=== PATIENT | female | born 2000 | race Caucasian/White ===

== ENCOUNTER 2020-09-17 16:50 | Emergency (ER) | payer SELFPAY ==
[2020-09-17 18:15] VITALS: BP 128/77; PULSE 87; RESP 16; TEMP 36.9; O2SAT 100; BMI 33.1
--- NOTE | 2020-09-17 18:22 | ED.ALLEREA ---
HPI - Allergic Reaction General Chief complaint: Allergic Reaction Stated complaint: itchy skin Time Seen by Provider: 09/17/20 18:20 History of Present Illness HPI narrative: Patient complains of itchy red rash x1 day with no shortness of breath no throat swelling, unsure of what could have caused it and no other complaint Related Data Previous Rx's Medication Instructions Recorded cetirizine 10 mg PO DAILY PRN #14 tab 09/17/20 diphenhydramine HCl [Benadryl] 50 mg PO BEDTIME PRN #14 cap 09/17/20 famotidine [Pepcid] 20 mg PO BID PRN #14 tab 09/17/20 prednisone 60 mg PO DAILY 3 Days #9 tab 09/17/20 Allergies Allergy/AdvReac Type Severity Reaction Status Date / Time No Known Allergies Allergy Verified 09/17/20 18:21 Review of Systems Review of Systems: Review of systems is positive for skin rash There is no dizziness no fever no chills no numbness no weakness no chest pain no shortness of breath no fainting no throat swelling no difficulty swallowing Yes all other systems are reviewed and are negative PMFSH Past Medical History Source: nursing notes reviewed Medical History (Updated 09/17/20 @ 18:25 by HANK Larios) No known health problems Social History Social History Smoked in Last 30 Days: No Use of substances other than those prescribed or required for medical reasons: No Advance Directives: No Advance Directives Information Provided: Yes Physical Exam Vital Signs: Vital Signs: Last Vital Signs Temp 98.5 F 09/17/20 18:15 Pulse 87 09/17/20 18:15 Resp 16 09/17/20 18:15 BP 128/77 09/17/20 18:15 Pulse Ox 100 09/17/20 18:15 Body Mass Index 33.1 General appearance is comfortable relax no acute distress with obvious ordered cardial rash on arms and exposed skin The pharynx is clear with no swelling no drooling the voice is normal The chest is clear to auscultation bilaterally with full symmetrical equal breath sounds, no adventitious sounds The heart no murmurs The skin is diffuse ordered cardial rash Extremities full range of motion x4 Neuro no focal deficit Discharge Plan Discharge Clinical Impression: Urticaria Patient Disposition: Home, Self-Care Additional Instructions: Use medications as prescribed to control symptoms Return any time any worse condition or concerns Follow with primary physician Prescriptions: New cetirizine 10 mg tablet 10 mg PO DAILY PRN (Reason: allergy symptoms) Qty: 14 RF: 0 prednisone 20 mg tablet 60 mg PO DAILY 3 Days Qty: 9 RF: 0 diphenhydramine HCl [Benadryl] 25 mg capsule 50 mg PO BEDTIME PRN (Reason: allergic reaction, if needed for rash and itch) Qty: 14 RF: 0 famotidine [Pepcid] 20 mg tablet 20 mg PO BID PRN (Reason: If needed for allergy symptoms) Qty: 14 RF: 0 Stand Alone Forms: Work/School Release Interventions: ED Discharge Assessment Last Done: 09/17/20 18:39 Discharge Date/Time: 09/17/20 18:41
[2020-09-17] MEDS: predniSONE 20 MG TABLET 60 MG PO (18:30)
[2020-09-17] MEDS: Loratadine 10 MG TABLET PO (18:31)
== END 2020-09-17 18:41 | disposition home or self-care (01) ==
PROVIDERS: Emergency Provider Emergency Medicine
DX: L50.9 Urticaria, unspecified (principal); Z79.899 Other long term (current) drug therapy
CPT/HCPCS: 99283; 99284

== ENCOUNTER 2020-09-20 13:26 | Emergency (ER) | payer SELFPAY ==
[2020-09-20 13:59] VITALS: BP 114/76; PULSE 96; RESP 16; TEMP 36.7; O2SAT 98; BMI 33.1
--- NOTE | 2020-09-20 14:21 | ED_ITS ---
HPI - Allergic Reaction General Chief complaint: Allergic Reaction Stated complaint: RASH,FACE SWOLLEN Time Seen by Provider: 09/20/20 14:07 Source: patient Mode of arrival: ambulatory Limitations: no limitations History of Present Illness HPI narrative: 19 y/o female presenting with acute onset of all over body rash, lips swelling and eye swelling that started just before going to work. 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 She states before she went to work she noticed she started to notice an itchy rash come all over her body. When she got there her lips began to swell and feel tingly. She said then it went to left eye and right eye. She was seen here on 09/17 for similar presentation however there was no facial involvement. She was prescribed steroids, benadryl, pepcid, and cetirizine however she never filled them. Her symptoms resolved on their own. Today on arrival her symptoms are already greatly improved but rash persists. She states the rash is painful and uncomfortable. No new meds or food. She did eat a raw apple last night. No known food allergies. She stopped using her new fabric softener over the weekend as she thought it was causing her rash. Denies tongue swelling, difficulty swallowing, wheezing, or SOB. MD complaint: allergic reaction Onset (ago): hour(s) (8) Exposure: unknown Symptoms: rash, facial swelling, lip swelling and hoarseness (brief raspy voice) Severity: moderate Treatment prior to arrival: none Previous Allergic Reaction History: prior ED visit(s) Related Data Previous Rx's Medication Instructions Recorded cetirizine 10 mg PO DAILY PRN #14 tab 09/17/20 diphenhydramine HCl [Benadryl] 50 mg PO BEDTIME PRN #14 cap 09/17/20 famotidine [Pepcid] 20 mg PO BID PRN #14 tab 09/17/20 prednisone 60 mg PO DAILY 3 Days #9 tab 09/17/20 Allergies Allergy/AdvReac Type Severity Reaction Status Date / Time No Known Allergies Allergy Verified 09/17/20 18:21 Review of Systems Review of Systems: Constitutional: No Fever, No Chills ENT/Mouth: No sore throat, No Rhinorrhea, No Swallowing Difficulty Eyes: + Eye Pain, + Swelling, No Redness Cardiovascular: No Chest Pain, No SOB, No Orthopnea, No Edema Respiratory: No Cough, No Sputum, No Wheezing, No dyspnea Gastrointestinal: No Nausea, No Vomiting, No Diarrhea, No abdominal Pain Genitourinary: No Dysuria, No Urinary Frequency, No Hematuria Musculoskeletal: No joint pain, No Myalgias Skin: No Skin Lesions, + rash Neuro: No Weakness, No Numbness, No Dizziness, No Headache Psych: + Anxiety/Panic, No Depression Heme/Lymph: No Bruising, No Lymphadenopathy Endocrine: No Polyuria, No Polydipsia [facility] Past Medical History Medical History (Updated 09/20/20 @ 15:16 by HANK Crenshaw) No known health problems Social History Social History Advance Directives: No Advance Directives Information Provided: No Physical Exam Vital Signs: Vital Signs: Last Vital Signs Temp 98.1 F 09/20/20 13:59 Pulse 96 09/20/20 13:59 Resp 16 09/20/20 13:59 BP 114/76 09/20/20 13:59 Pulse Ox 98 09/20/20 13:59 Body Mass Index 33.1 Appearance: Alert. Oriented X3. No distress. HEENT: mild swelling of upper lip. normal appearing pharynx, airway patent. CVS: Normal heart rate and rhythm. Pulses normal. Respiratory: No respiratory distress. No wheezing. Skin: Skin warm and dry. Diffuse red rash throughout her body, maculopapular, pruritus. Extremities: No edema. Neuro: Oriented X 3. No motor deficit. No sensory deficit. Course Course Course Narrative: 19 y/o here with rash, facial swelling unknown precipitant - resovling spontaneously. Will give dose of prednisone, benadryl and pepcid now and closely monitor. Reevaluation(s) Reevaluation #1: After medications symptoms continue to improve. She has been observed for 2.5 hours in the Emergency Department and facial swelling resolved. Rash is significantly improved. 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 Discharge Plan Discharge Clinical Impression: Allergic reaction Qualifiers: Encounter type: initial encounter Qualified Code(s): T78.40XA - Allergy, unspecified, initial encounter Patient Disposition: Home, Self-Care Instructions: Allergies (ED), Allergy Testing (ED) Additional Instructions: It is unknown what is causing your rash and swelling but all symptoms are greatly improved after the medications given in the ER. Recommend continuing these medications as prescribed below. Do not use any soaps, lotions, or detergents with a scent. Recommend hypoallergic formulations. Follow up with your doctor for referral for allergy testing. Prescriptions: Continued cetirizine 10 mg tablet 10 mg PO DAILY PRN (Reason: allergy symptoms) Qty: 14 RF: 0 prednisone 20 mg tablet 60 mg PO DAILY 3 Days Qty: 9 RF: 0 diphenhydramine HCl [Benadryl] 25 mg capsule 50 mg PO BEDTIME PRN (Reason: allergic reaction, if needed for rash and itch) Qty: 14 RF: 0 famotidine [Pepcid] 20 mg tablet 20 mg PO BID PRN (Reason: If needed for allergy symptoms) Qty: 14 RF: 0
[2020-09-20] MEDS: Famotidine 20 MG TABLET PO (14:34)
[2020-09-20] MEDS: Ibuprofen 600 MG TABLET PO (14:35)
[2020-09-20] MEDS: diphenhydrAMINE HCL 25 MG TABLET PO (14:35)
[2020-09-20] MEDS: predniSONE 10 MG TABLET 50 MG PO (14:36)
== END 2020-09-20 16:03 | disposition home or self-care (01) ==
PROVIDERS: Emergency Provider Emergency Medicine
DX: R21 Rash and other nonspecific skin eruption (principal); T78.40XA Allergy, unspecified, initial encounter; X58.XXXA Exposure to other specified factors, initial encounter; Z79.899 Other long term (current) drug therapy
CPT/HCPCS: 99283; Q0163

== ENCOUNTER 2022-05-17 11:18 | Emergency (ER) | payer BC, SELFPAY ==
[2022-05-17 11:20] VITALS: BP 120/66; PULSE 72; O2SAT 96
[2022-05-17 11:22] VITALS: BP 138/63; PULSE 64; RESP 18; TEMP 35.9; O2SAT 97; BMI 31.6
--- NOTE | 2022-05-17 11:36 | ED.GENADULT ---
HPI - General Adult General Chief complaint: ETOH/Substance Use Stated complaint: CANNOT SEE OR HEAR S/P CANNABIS USE Time Seen by Provider: 05/17/22 11:24 Source: patient Mode of arrival: ambulatory Limitations: no limitations History of Present Illness HPI narrative: 21 yo female presents to the ER with vision changes and hearing changes that started about 15 minutes after she smoked marijuana today. She reports smoking with someone else who did not experience these symptoms. She states her vision is blurry and her hearing sounded like everything was under water. She had chills and sweats along with anxiety. Her hearing and vision are improving but not back to normal. She said the marijuana was from a dispensary and she has never had a reaction like this. She smokes daily to help with anxiety. Denies all other drug use. She also reports upset stomach for a few days and nausea. MD complaint: adverse effects of marijuana Onset (ago): minute(s) Location: head, face, mouth, eyes and abdomen Radiation: non-radiation Severity: moderate Relieving factors: none Exacerbating factors: none Associated symptoms: confusion Treatments prior to arrival: none Related Data Previous Rx's Medication Instructions Recorded cetirizine 10 mg tablet 10 mg PO DAILY PRN allergy 09/17/20 symptoms #14 tabs diphenhydramine HCl 25 mg capsule 50 mg PO BEDTIME PRN allergic 09/17/20 (Benadryl) reaction, if needed for rash and itch #14 caps famotidine 20 mg tablet (Pepcid) 20 mg PO BID PRN If needed for 09/17/20 allergy symptoms #14 tabs prednisone 20 mg tablet 60 mg PO DAILY 3 days #9 tabs 09/17/20 vit no.95-ferrous 1 tab PO DAILY #30 tabs 05/17/22 fumarate 28 mg-folic acid 800 mcg tablet ( Formula) Allergies Allergy/AdvReac Type Severity Reaction Status Date / Time No Known Allergies Allergy Verified 09/17/20 18:21 Review of Systems Review of Systems: Constitutional: No Fever, + Chills ENT/Mouth: No sore throat, No Rhinorrhea, No Swallowing Difficulty, +hearing changes Eyes: No Eye Pain, No Swelling, + Redness, +vision changes Cardiovascular: No Chest Pain, No SOB Respiratory: No Cough, No Sputum Gastrointestinal: + Nausea, No Vomiting, No Diarrhea, + abdominal Pain, No Hematochezia, No Melena Genitourinary: No Dysuria, No Urinary Frequency, No Hematuria Musculoskeletal: No joint pain, No Myalgias Skin: No Skin Lesions, No rash Neuro: + Weakness, No Numbness, No Dizziness, No Headache Psych:+ Anxiety/Panic, No Depression Heme/Lymph: No Bruising, No Lymphadenopathy PMFSH Past Medical History Medical History (Updated 05/17/22 @ 14:27 by HANK Crenshaw) No known health problems Social History Social History Advance Directives: No Advance Directives Information Provided: No Physical Exam ED Vital Signs: Vital Signs - 24 hr 05/17/22 11:22 Temperature 96.6 F L Pulse Rate 64 Respiratory Rate 18 Blood Pressure 138/63 Pulse Oximetry 97 BMI result Body Mass Index 31.6 Appearance: Lethargic, eyes closed. Oriented X3. No acute distress. Eyes: Pupils sluggish, 4mm, equal, round and reactive to light. ENT: Pharynx normal. Normal TMs bilaterally, grossly normal hearing Neck: Normal inspection. Neck supple. CVS: Normal heart rate and rhythm. Pulses normal. Respiratory: No respiratory distress. Breath sounds normal. Abdomen: Soft and nontender. +BS x4 Skin: Skin warm and dry. Normal skin color. Normal skin turgor. No rashes. Extremities: No lower extremity edema. No evidence of track wasserman Neuro: Oriented X 3. Slow to respond. UE weakness bilaterally. Slow but steady gait. Course Course Course Narrative: 21 yo female presents to the ER with vision and hearing changes after smoking marijuana. Symptoms slowly improving and are most likely related to substance use, concern for possible opiates. Will check Utox, Upreg and observe. Reevaluation(s) Reevaluation #1: After 2 hours of observation patient is feeling much better. No longer lethargic or weak, hearing and vision normal. UPREG POSITIVE. Patient counseled. Unsure of LMP, sometime last month. Will start on prenatals and refer to OBGYN Utox is positive for opiates and marijuana. Adamantly denies any opiate use. She is going to stop all drug use given her . Stable for d/c home. Medical Decision Making Lab Data Labs: Lab Results 05/17/22 05/17/22 Range/Units 14:02 14:02 Urine Test POSITIVE H (NEGATIVE) Urine Opiates Screen POSITIVE H (Not Detect) Urine Fentanyl Screen Not Detected (Not Detect) Ur Barbiturates Screen Not Detected (Not Detect) Ur Phencyclidine Scrn Not Detected (Not Detect) Ur Amphetamines Screen Not Detected (Not Detect) U Benzodiazepines Scrn Not Detected (Not Detect) Urine Cocaine Screen Not Detected (Not Detect) U Marijuana (THC) Screen POSITIVE H (Not Detect) Discharge Plan Discharge Clinical Impression: Adverse effect of cannabis, Patient Disposition: Home, Self-Care Instructions: (ED), at 7 to 10 Weeks (ED) Additional Instructions: Your urine test was positive for opiates and marijuana. Your symptoms are most likely do to the drugs. DO NOT USE ANY DRUGS. You also tested positive for . Recommend starting a vitamin (sent to [facility] on ) and following up with [facility] or [facility]. Prescriptions: New PNV cmb#95-ferrous fumarate-FA [ Formula] 28 mg iron- 800 mcg tablet 1 tab PO DAILY Qty: 30 0RF No Action cetirizine 10 mg tablet 10 mg PO DAILY PRN (Reason: allergy symptoms) Qty: 14 0RF prednisone 20 mg tablet 60 mg PO DAILY 3 Days Qty: 9 0RF diphenhydramine HCl [Benadryl] 25 mg capsule 50 mg PO BEDTIME PRN (Reason: allergic reaction, if needed for rash and itch) Qty: 14 0RF famotidine [Pepcid] 20 mg tablet 20 mg PO BID PRN (Reason: If needed for allergy symptoms) Qty: 14 0RF Referrals: Roni Barboza MD [Physician] - (newly diagnosed ) Stand Alone Forms: Work/School Release
[2022-05-17 14:12] LABS: UPreg QC Valid YES; Urine Pregnancy POSITIVE (NEGATIVE)
[2022-05-17 14:28] LABS: Amphetamine Screen Urine Not Detected (Not Detect); Barbiturates, Urine Not Detected (Not Detect); Benzodiazepines Screen Urine Not Detected (Not Detect); Cannabinoid Screen Urine POSITIVE (Not Detect); Cocaine Screen Urine Not Detected (Not Detect); Fentanyl, urine Not Detected (Not Detect); Opiate Screen Urine POSITIVE (Not Detect); Phencyclidine Screen Urine Not Detected (Not Detect)
== END 2022-05-17 15:04 | disposition home or self-care (01) ==
PROVIDERS: Physician Assistant; Emergency Provider Emergency Medicine
DX: T40.711A Poisoning by cannabis, accidental (unintentional), initial encounter (principal); R53.1 Weakness; H53.8 Other visual disturbances; Y92.9 Unspecified place or not applicable; R68.83 Chills (without fever); R11.0 Nausea; Z33.1 Pregnant state, incidental
CPT/HCPCS: 80307; 81025; 99283

== ENCOUNTER 2023-06-24 02:00 | Emergency (ER) | payer BC, SELFPAY ==
[2023-06-24 02:09] VITALS: BP 129/78; PULSE 84; RESP 18; TEMP 36.7; O2SAT 96; BMI 35.0
[2023-06-24 02:25] LABS: MANUAL DIFF FLAG NO
[2023-06-24 02:26] LABS: Basophils Absolute Auto 0.1 X10*3/uL (0.0-0.2); Basophils Percent Auto 0.7 % (0-2); Eosinophils Absolute Auto 0.5 X10*3/uL (0.0-0.4); Eosinophils Percent Auto 5.3 % (0-4); Hematocrit 39.6 % (37.0-47.0); Hemoglobin 12.6 g/dl (12.0-16.0); Imm Gran Abs Auto 0.04 X10*3/uL (0.00-0.03); Imm Gran Pct Auto 0.4 % (0.0-0.4); Lymphocytes Absolute Auto 1.9 X10*3/uL (1.2-4.9); Lymphocytes Percent Auto 20.1 % (20-40); Mean Corpuscular HGB Conc 31.8 g/dl (31.0-35.0); Mean Corpuscular Hemoglobin 26.1 pg (27.0-33.0); Mean Corpuscular Volume 82.2 fL (80.0-98.0); Mean Platelet Volume 10.4 fL (9.4-12.3); Monocytes Absolute Auto 0.8 X10*3/uL (0.1-1.2); Monocytes Percent Auto 7.8 % (2-11); Neutrophils Absolute Auto 6.3 x10*3/uL (2.0-8.3); Neutrophils Percent Auto 65.7 % (45-73); Platelet Count 318 X10*3/uL (160-400); Red Blood Count 4.82 X10*6/uL (4.20-5.50); Red Cell Distribution Width 13.7 % (11.0-16.0); White Blood Count 9.6 X10*3/uL (4.8-10.8)
[2023-06-24 02:40] LABS: Alanine Aminotransferase 17 U/L (0-31); Albumin Level 4.4 g/dL (3.5-5.0); Alkaline Phosphatase 80 U/L (39-117); Anion Gap 10 (12-20); Aspartate Amino Transferase 15 U/L (5-31); Bilirubin Direct 0.1 mg/dL (0.0-0.5); Bilirubin Total 0.4 mg/dL (0.0-1.0); Blood Urea Nitrogen 14 mg/dL (9-16); Calcium 9.7 mg/dL (8.4-10.2); Carbon Dioxide 25 mmol/L (22-29); Chloride 107 mmol/L (96-108); Creatinine Clr Calc Pharmacy 120.5; Estimated Glomerular Filt Rate > 60; Glucose Random 106 mg/dL (60-115); Lipase 19 U/L (8-78); Potassium 4.3 mmol/L (3.3-5.1); Sodium 138 mmol/L (135-145); Total Protein 7.7 g/dL (6.5-8.0)
[2023-06-24 02:44] LABS: COVID-19 Test Negative (Negative); IDNOW Serial# 6674DD1D
--- NOTE | 2023-06-24 02:44 | MHC.EDTECH ---
PATIENT BLOOD DRAWN ,URINE SAMPLE COLLECTED AND ,COVID SWAB ALL SENT TO LAB .
[2023-06-24 02:47] LABS: Appearance Urine Clear; Color Urine Yellow; Glucose Urine UA Negative (Negative); Leukocyte Esterase Urine Negative (Negative); Nitrite Urine Negative (Negative); Specific Gravity - Urine 1.025 (1.005-1.025); Urine Blood Negative (Negative); Urine Ketones Negative (Negative); Urine Protein Negative (Neg-Trace)
[2023-06-24 02:49] LABS: UPreg QC Valid YES; Urine Pregnancy NEGATIVE (NEGATIVE)
--- NOTE | 2023-06-24 03:05 | ED_ITS ---
HPI - General Adult General Chief complaint: General Medical Stated complaint: Shortness of breath, vomiting Time Seen by Provider: 06/24/23 03:05 Source: patient Mode of arrival: ambulatory Limitations: no limitations History of Present Illness HPI narrative: Patient has multiple complaints very anxious use cannabis having symptoms of nausea abdominal bloating poor sleep and anxiety for last 3 weeks feels better after taking a hot shower Related Data Previous Rx's Medication Instructions Recorded amoxicillin 875 mg-potassium 1 tab PO Q12H 7 days #14 tabs 03/10/23 clavulanate 125 mg tablet dicyclomine 20 mg tablet 20 mg PO QID PRN abdominal pain 06/24/23 #20 tabs lorazepam 1 mg tablet (Ativan) 1 mg PO BEDTIME PRN sleep #10 tabs 06/24/23 ondansetron 4 mg disintegrating 4 mg PO Q6-8H PRN nausea and 06/24/23 tablet vomiting #7 tabs Allergies Allergy/AdvReac Type Severity Reaction Status Date / Time No Known Allergies Allergy Verified 06/24/23 02:13 Review of Systems Review of Systems: Yes all other systems are reviewed and are negative [facility] Past Medical History Medical History No known health problems Social History Social History Patient Tobacco Use Status: Never used Tobacco Advance Directives: No Advance Directives Information Provided: Yes Physical Exam ED Vital Signs: Vital Signs - 24 hr 06/24/23 02:09 Temperature 98.1 F Pulse Rate 84 Respiratory Rate 18 Blood Pressure 129/78 Pulse Oximetry 96 Oxygen Delivery Method Room Air BMI result Body Mass Index 35.0 Appearance: Alert. Oriented X3. No acute distress. Eyes: PERRLA, No Nystagmus ENT: Pharynx normal. Oral Mucosa moist Neck: Normal inspection. Neck supple. CVS: Normal heart rate and rhythm. Pulses normal. Respiratory: No respiratory distress. Equal air entry bilateral, no wheezing/rales/rhonchi Abdomen: Soft and nontender. Bowel sounds are present, no mass palpable, no CVA tenderness Skin: Skin warm and dry. Normal skin color. Normal skin turgor. Extremities: No lower extremity edema. No calf tenderness Neuro: Oriented X 3. No motor deficit. Medical Decision Making Medical Decision Making MDM Narrative: Patient likely with anxiety with IBS vomiting secondary anxiety or cannabis use Lab Data MDM Lab Attestation statement: I reviewed the patient's lab results. 06/24/23 02:18 06/24/23 02:18 Labs: Lab Results 06/24/23 06/24/23 06/24/23 Range/Units 02:18 02:18 02:18 WBC 9.6 (4.8-10.8) X10*3/uL RBC 4.82 (4.20-5.50) X10*6/uL Hgb 12.6 (12.0-16.0) g/dl Hct 39.6 (37.0-47.0) % MCV 82.2 (80.0-98.0) fL MCH 26.1 L (27.0-33.0) pg MCHC 31.8 (31.0-35.0) g/dl RDW 13.7 (11.0-16.0) % Plt Count 318 (160-400) X10*3/uL MPV 10.4 (9.4-12.3) fL Immature Gran % (Auto) 0.4 (0.0-0.4) % Neut % (Auto) 65.7 (45-73) % Lymph % (Auto) 20.1 (20-40) % Emanuel % (Auto) 7.8 (2-11) % Eos % (Auto) 5.3 H (0-4) % Baso % (Auto) 0.7 (0-2) % Lymph # (Auto) 1.9 (1.2-4.9) X10*3/uL Emanuel # (Auto) 0.8 (0.1-1.2) X10*3/uL Eos # (Auto) 0.5 H (0.0-0.4) X10*3/uL Baso # (Auto) 0.1 (0.0-0.2) X10*3/uL Abs Immat Gran (auto) 0.04 H (0.00-0.03) X10*3/uL Absolute Neuts (auto) 6.3 (2.0-8.3) x10*3/uL Absolute Nucleated RBC 0.000 (0.0-0.012) X10*3/uL Nucleated RBC % (auto) 0.0 (0.0-0.2) /100WBC Sodium 138 (135-145) mmol/L Potassium 4.3 (3.3-5.1) mmol/L Chloride 107 (96-108) mmol/L Carbon Dioxide 25 (22-29) mmol/L Anion Gap 10 L (12-20) BUN 14 (9-16) mg/dL Creatinine 0.80 (0.5-1.4) mg/dL Estim Creat Clear Calc 120.5 Estimated GFR > 60 Random Glucose 106 (60-115) mg/dL Calcium 9.7 (8.4-10.2) mg/dL Total Bilirubin 0.4 (0.0-1.0) mg/dL Direct Bilirubin 0.1 (0.0-0.5) mg/dL AST 15 (5-31) U/L ALT 17 (0-31) U/L Alkaline Phosphatase 80 (39-117) U/L Total Protein 7.7 (6.5-8.0) g/dL Albumin 4.4 (3.5-5.0) g/dL Lipase 19 (8-78) U/L Urine Color Urine Appearance Urine pH (5.0-9.0) Ur Specific [place] (1.005-1.025) Urine Protein (Neg-Trace) mg/dL Urine Glucose (UA) (Negative) mg/dL Urine Ketones (Negative) mg/dL Urine Blood (Negative) Urine Nitrite (Negative) Ur Leukocyte Esterase (Negative) Urine Test (NEGATIVE) COVID-19 (ADA) Negative (Negative) COVID-19 Clin Com See Note 06/24/23 06/24/23 Range/Units 02:40 02:40 WBC (4.8-10.8) X10*3/uL RBC (4.20-5.50) X10*6/uL Hgb (12.0-16.0) g/dl Hct (37.0-47.0) % MCV (80.0-98.0) fL MCH (27.0-33.0) pg MCHC (31.0-35.0) g/dl RDW (11.0-16.0) % Plt Count (160-400) X10*3/uL MPV (9.4-12.3) fL Immature Gran % (Auto) (0.0-0.4) % Neut % (Auto) (45-73) % Lymph % (Auto) (20-40) % Emanuel % (Auto) (2-11) % Eos % (Auto) (0-4) % Baso % (Auto) (0-2) % Lymph # (Auto) (1.2-4.9) X10*3/uL Emanuel # (Auto) (0.1-1.2) X10*3/uL Eos # (Auto) (0.0-0.4) X10*3/uL Baso # (Auto) (0.0-0.2) X10*3/uL Abs Immat Gran (auto) (0.00-0.03) X10*3/uL Absolute Neuts (auto) (2.0-8.3) x10*3/uL Absolute Nucleated RBC (0.0-0.012) X10*3/uL Nucleated RBC % (auto) (0.0-0.2) /100WBC Sodium (135-145) mmol/L Potassium (3.3-5.1) mmol/L Chloride (96-108) mmol/L Carbon Dioxide (22-29) mmol/L Anion Gap (12-20) BUN (9-16) mg/dL Creatinine (0.5-1.4) mg/dL Estim Creat Clear Calc Estimated GFR Random Glucose (60-115) mg/dL Calcium (8.4-10.2) mg/dL Total Bilirubin (0.0-1.0) mg/dL Direct Bilirubin (0.0-0.5) mg/dL AST (5-31) U/L ALT (0-31) U/L Alkaline Phosphatase (39-117) U/L Total Protein (6.5-8.0) g/dL Albumin (3.5-5.0) g/dL Lipase (8-78) U/L Urine Color Yellow Urine Appearance Clear Urine pH 6.0 (5.0-9.0) Ur Specific [place] 1.025 (1.005-1.025) Urine Protein Negative (Neg-Trace) mg/dL Urine Glucose (UA) Negative (Negative) mg/dL Urine Ketones Negative (Negative) mg/dL Urine Blood Negative (Negative) Urine Nitrite Negative (Negative) Ur Leukocyte Esterase Negative (Negative) Urine Test NEGATIVE (NEGATIVE) COVID-19 (ADA) (Negative) COVID-19 Clin Com Discharge Plan Discharge Clinical Impression: Irritable bowel syndrome, Anxiety, Cannabis abuse with cannabis-induced disorder Patient Disposition: Home, Self-Care Instructions: Irritable Bowel Syndrome (ED), Cannabis Abuse (ED), Anxiety (ED) Additional Instructions: Stop smoking marijuana Take medication as prescribed Drink plenty of fluids Follow-up with PCP Prescriptions: New dicyclomine 20 mg tablet 20 mg PO QID PRN (Reason: abdominal pain) Qty: 20 0RF ondansetron 4 mg tablet,disintegrating 4 mg PO Q6-8H PRN (Reason: nausea and vomiting) Qty: 7 0RF lorazepam [Ativan] 1 mg tablet 1 mg PO BEDTIME PRN (Reason: sleep) Qty: 10 0RF No Action amoxicillin-pot clavulanate 875-125 mg tablet 1 tab PO Q12H 7 Days Qty: 14 0RF Stand Alone Forms: Work/School Release
[2023-06-24] MEDS: Ondansetron ODT 4 MG TAB.RAPDIS TRANSLINGU (03:43)
[2023-06-24] MEDS: LORazepam 1 MG TABLET PO (03:43)
[2023-06-24] MEDS: Dicyclomine HCl 10 MG CAPSULE 20 MG PO (03:43)
== END 2023-06-24 03:46 | disposition home or self-care (01) ==
PROVIDERS: Emergency Provider Internal Medicine
DX: K58.9 Irritable bowel syndrome, unspecified (principal); F12.188 Cannabis abuse with other cannabis-induced disorder; F41.9 Anxiety disorder, unspecified; Z20.822 Contact with and (suspected) exposure to COVID-19
CPT/HCPCS: 36415; 80048; 80076; 81003; 81025; 83690; 85025; 87635; 99282; 99283

== ENCOUNTER 2023-11-27 08:16 | Outpatient (AMB) | payer BC, SELFPAY ==
[2023-11-27 08:40] VITALS: BP 124/70; TEMP 36.3; BMI 38.8
--- NOTE | 2023-11-27 08:40 | AM.OFFWIN_ITS ---
Intake Vital Signs 11/27/23 08:40 Height 5 ft 4 in Weight 179 lb BMI 30.7 BP 124/70 Blood Pressure Location Lt brachial Position Sitting Temp 97.4 F Temp Source Temporal Artery Scan Intake Visit Reasons: EP, cough,sore throat ([phone]) Intake Note: pt is here today for cough sore throat started 2 days ago Patient Tobacco Use Status: Never used Tobacco Allergies No Known Allergies Allergy (Verified 11/27/23 08:41) Do you need a note to return to daycare/school/sports/work: No HPI HPI Comments History of Present Illness Details The patient presents to urgent care for evaluation of sore throat nasal congestion body aches. She reports symptoms began 2 days ago. No fever no chest pain or shortness of breath. PFSH Medical History No known health problems Social History Patient Tobacco Use Status: Never used Tobacco Physical Exam Vital Signs: Last Vital Signs Temp 97.4 F 11/27/23 08:40 BP 124/70 11/27/23 08:40 BMI result Body Mass Index 30.7 Const General: healthy appearing and no acute distress Chest Chest palpation & inspection: normal inspection of the chest Resp Effort & Inspection: normal respiratory effort and able to speak in complete sentences Auscultation: clear to auscultation bilaterally Results AMB Rapid Strep AMB Rapid Strep Negative Last Edit by Garo Escalona CMA on 11/27/23 08 :58 Assessment & Plan Assessment & Plan (1) URI (upper respiratory infection): Code(s): J06.9 - Acute upper respiratory infection, unspecified Plan Symptoms consistent with viral syndrome. Patient interested in testing for COVID flu. Work note given. Well-appearing stable for outpatient follow-up Orders: Orders AMB Rapid Strep Screen Today Z13.9 - Encounter for screening, unspecified SARS-CoV2/FLU/RSV Today R68.89 - Other general symptoms and signs Coding Level of Care Code Est Pt Level 3 (89561) Diagnoses URI (upper respiratory infection) J06.9
--- NOTE | 2023-11-27 09:12 | AM.OFFWIN_ITS ---
Intake Vital Signs 11/27/23 08:40 Height 5 ft 4 in Weight 226 lb BMI 38.8 BP 124/70 Blood Pressure Location Lt brachial Position Sitting Temp 97.4 F Temp Source Temporal Artery Scan Intake Visit Reasons: EP, cough,sore throat ([phone]) Patient Tobacco Use Status: Never used Tobacco Allergies No Known Allergies Allergy (Verified 11/27/23 08:41) PFSH Medical History No known health problems Social History Patient Tobacco Use Status: Never used Tobacco Physical Exam Vital Signs: Last Vital Signs Temp 97.4 F 11/27/23 08:40 BP 124/70 11/27/23 08:40 BMI result Body Mass Index 38.8 Results AMB Rapid Strep AMB Rapid Strep Negative Last Edit by Garo Escalona CMA on 11/27/23 08 :58 Results Reviewed Results Reviewed: Laboratory Last Values Strep Scn Rapid Clinic Negative 11/27/23 08:57 Assessment & Plan Assessment & Plan Orders: Orders AMB Rapid Strep Screen Today Z13.9 - Encounter for screening, unspecified SARS-CoV2/FLU/RSV Today R68.89 - Other general symptoms and signs Coding
== END 2023-11-27 09:07 | disposition home or self-care (01) ==
PROVIDERS: Visit Provider Emergency Medicine
DX: J06.9 Acute upper respiratory infection, unspecified (principal); J02.9 Acute pharyngitis, unspecified
CPT/HCPCS: 87880; 99213

== ENCOUNTER 2023-11-27 11:59 | Outpatient (REF) | payer BC, SELFPAY ==
[2023-11-27 12:52] LABS: Influenza A PCR NEGATIVE (Negative); Influenza B PCR NEGATIVE (Negative); Resp Syncy Virus RNA Qual PCR NEGATIVE (Negative); SARS COV2 PCR INHOUSE NEGATIVE (Negative)
== END 2023-11-27 12:00 | disposition home or self-care (01) ==
LOC: HO.HMGCLNP 11:59
PROVIDERS: Visit Provider Emergency Medicine
DX: Z11.52 Encounter for screening for COVID-19 (principal); Z20.822 Contact with and (suspected) exposure to COVID-19; R68.89 Other general symptoms and signs
CPT/HCPCS: 0241U

== ENCOUNTER 2024-08-11 09:20 | Emergency (ER) | payer MEDICAID, SELFPAY ==
[2024-08-11 09:26] VITALS: BP 131/89; PULSE 99; RESP 16; TEMP 36.2; O2SAT 100; BMI 38.6
[2024-08-11 09:53] LABS: Appearance Urine Clear; Color Urine Yellow; Glucose Urine UA Negative (Negative); Leukocyte Esterase Urine Small (1+) (Negative); Nitrite Urine Negative (Negative); UMIC TRIGGER UACC YES; Urine Blood Negative (Negative); Urine Ketones Negative (Negative); Urine Protein Negative (Neg-Trace)
[2024-08-11 09:55] LABS: UPreg QC Valid YES; Urine Pregnancy NEGATIVE (NEGATIVE)
[2024-08-11 10:08] LABS: Bacteria Urine Trace (None Seen); Hyaline Casts Urine 0-2 /LPF (0-2); RBC Urine 0-2 /HPF (0-2); Squamous Epithelial Cell Urine 0-2 /HPF (0-2); UACC Culture Trigger YES
--- NOTE | 2024-08-11 10:24 | ED.GENADULT ---
HPI - General Adult General Chief complaint: General Medical Stated complaint: /std testing Time Seen by Provider: 08/11/24 10:00 Source: patient Mode of arrival: ambulatory Limitations: no limitations History of Present Illness ED Provider: Giorgi Reynolds PA-C HPI narrative: 23 yold female with past medical history of chlamydia presents to ED for concern for being and STI exposure. Patient states had last unprotected sex in June after started having some vaginal yellow discharge and missed her period in July. Patient denies any vaginal lesions, fever, chills, nausea, vomiting, or flank pain. Patient denies any vaginal bleeding. Related Data Previous Rx's ?Medication ?Instructions ?Recorded cefuroxime axetil 500 mg tablet 500 mg PO Q12H 5 days #10 tabs 08/11/24 doxycycline hyclate 100 mg tablet 100 mg PO BID 7 days #14 tabs 08/11/24 metronidazole 500 mg tablet 500 mg PO Q12H 7 days #14 tabs 08/11/24 Allergies Allergy/AdvReac Type Severity Reaction Status Date / Time No Known Allergies Allergy Verified 08/11/24 09:28 Review of Systems Review of Systems: Yellow vaginal discharge Yes all other systems are reviewed and are negative [facility] Past Medical History Medical History No known health problems Social History Social History Patient Tobacco Use Status: Never used Tobacco Advance Directives: No Advance Directives Information Provided: No Do you have a plan to hurt others: No Plan Physical Exam ED Vital Signs: Vital Signs - 24 hr 08/11/24 09:26 08/11/24 11:05 Temperature 97.2 F 97.2 F Pulse Rate 99 99 Respiratory Rate 16 16 Blood Pressure 131/89 131/89 Pulse Oximetry 100 100 Oxygen Delivery Method Room Air Room Air BMI result Body Mass Index 38.6 Const General: cooperative, healthy appearing, comfortable, no acute distress, well developed, alert, awake and Physically active Orientation/consciousness: patient oriented x3 HENMT Head: Yes normal to inspection, Yes No palpable skull fracture present, Yes normocephalic, Yes atraumatic and No abrasion Eyes General: appearance normal, both eyes and all related structures Neck Neck: Yes normal visual inspection, Yes full ROM, Yes no lymphadenopathy, Yes no meningeal signs, Yes trachea midline, Yes supple, No anterior neck swelling and No tender Chest Chest palpation & inspection: normal inspection of the chest and normal palpation of entire chest wall Resp Effort & Inspection: normal respiratory effort and able to speak in complete sentences Auscultation: clear to auscultation bilaterally Cardio Jugular venous distension: no JVD Heart sounds: S1 normal heart sound present and S2 normal heart sound present GI Inspection: Yes normal to inspection Palpation (GI): Soft to palpation, not firm, nontender, no guarding and not rigid Other: deferred by patient General: No CVA tenderness and Yes no CVA tenderness Back/Spine/Pelvis Back: no CVA tenderness, No CVA tenderness and No back tenderness Skin General skin exam: no rashes or lesions noted, elasticity normal and turgor normal Neuro General: patient oriented x3, gait normal, tone normal, moves all extremities, Normal light touch and pain sensation, no meningeal signs, no focal motor deficits, CN's II-XI intact bilaterally and normal sensation to monofilament Extrem General: Yes normal to inspection, Yes full ROM and Yes capillary refill normal Psych Appearance: grossly normal, well kempt and not disheveled Medications Administered Discontinued Medications Generic Name Dose Route Start Last Admin Trade Name Freq PRN Reason Stop Dose Admin Ceftriaxone Sodium 500 mg/ 0 mg 08/11/24 10:28 08/11/24 10:43 Lidocaine HCl 1 ml IM 08/11/24 10:29 1 kit ONCE ONE Administration Medical Decision Making Medical Decision Making [facility] Narrative: 23-year-old female presents to ED for vaginal yellow discharge due to unprotected sex and is concerned for . Patient negative for . Patient deferred pelvic exam prefer to swab herself. UA shows mild UTI. Patient will be treated empirically for STI exposure. Patient informed to follow up with [facility] to be tested for syphilis and HIV and other STIs. Differential Diagnosis Differential Diagnoses: The differential diagnosis associated with the presentation includes (UTI, STI) Admission/Observation Consideration of admission/observation: Escalation of care including admission/observation considered Lab Data [facility] Lab Attestation statement: I reviewed the patient's lab results. Labs: Lab Results 08/11/24 08/11/24 Range/Units 09:44 10:42 Urine Color Yellow Urine Appearance Clear Urine pH 6.0 (5.0-9.0) Ur Specific [place] 1.020 (1.005-1.025) Urine Protein Negative (Neg-Trace) mg/dL Urine Glucose (UA) Negative (Negative) mg/dL Urine Ketones Negative (Negative) mg/dL Urine Blood Negative (Negative) Urine Nitrite Negative (Negative) Ur Leukocyte Esterase Small (1+) H (Negative) Urine RBC 0-2 (0-2) /HPF Urine WBC 6-10 H (0-5) /HPF Ur Squamous Epith Cells 0-2 (0-2) /HPF Urine Bacteria Trace (None Seen) Hyaline Casts 0-2 (0-2) /LPF Urine Test NEGATIVE (NEGATIVE) T. vaginalis (PCR) NOT DETECTED (Not Detect) Bact Vaginosis (PCR) NEGATIVE (Negative) C. krusei/glabrata (PCR) NOT DETECTED (Not Detect) Laura group (PCR) NOT DETECTED (Not Detect) Independent Historian Clinical information obtained from an independent historian. History obtained from or confirmed by: Other (patient) External Record Review External record reviewed: Other (prior visits) Prescription Management I considered prescription management with: Antibiotic Discharge Plan Discharge Clinical Impression: UTI (urinary tract infection), Vaginal discharge Patient Disposition: Home, Self-Care Instructions: Safe Sex Practices (ED), Urinary Tract Infection in Women (ED), Vaginal Discharge (ED) Additional Instructions: Recommend follow-up with your primary care provider. You will be discharged with more antibiotics. Recommend follow-up with [facility] for HIV testing and other STI testing. Return to the ED immediately for any abdominal pain, nausea, vomiting, fever, chills, flank pain, vaginal lesions, vaginal discharge, or any other concerning symptoms. Prescriptions: New doxycycline hyclate 100 mg tablet 100 mg PO BID 7 Days Qty: 14 0RF metronidazole 500 mg tablet 500 mg PO Q12H 7 Days Qty: 14 0RF cefuroxime axetil 500 mg tablet 500 mg PO Q12H 5 Days Qty: 10 0RF Stand Alone Forms: Work/School Release Interventions: ED Discharge Assessment Last Done: 08/11/24 11:05 Discharge Date/Time: 08/11/24 11:05 Print Language: Samoan
[2024-08-11] MEDS: cefTRIAXone sodium 500 MG, Lidocaine HCl 1 % MPF 1 ML IM (10:43)
[2024-08-11 11:05] VITALS: BP 131/89; PULSE 99; RESP 16; TEMP 36.2; O2SAT 100
[2024-08-11 11:56] LABS: Bacterial Vaginosis PCR NEGATIVE (Negative); Candida Group PCR NOT DETECTED (Not Detect); Candida glab krusei PCR NOT DETECTED (Not Detect); Trichomonas vaginalis PCR NOT DETECTED (Not Detect)
[2024-08-12 14:02] LABS: CT PCR NOT DETECTED (Not Detect.); NG PCR NOT DETECTED (Not Detect.)
== END 2024-08-11 11:05 | disposition home or self-care (01) ==
PROVIDERS: Physician Assistant; Emergency Provider Student in an Organized Health Care Education/Training Program
DX: N39.0 Urinary tract infection, site not specified (principal); N89.8 Other specified noninflammatory disorders of vagina; Z20.2 Contact with and (suspected) exposure to infections with a predominantly sexual mode of transmission
CPT/HCPCS: 0352U; 81001; 81003; 81025; 87086; 87491; 87591; 99282; 99284; J0696; J2003